=== PATIENT | female | born 1970 | race Caucasian/White ===

== ENCOUNTER 2018-07-18 09:19 | Emergency (ER) | payer MEDICAID ==
[2018-07-18] MEDS ORDERED: HYDROCODONE/ACETAMINOPHEN 5-325 MG TABLET PO ONE (09:43)
--- NOTE | 2018-07-18 09:44 | ER Document Report ---
ED Medical Screen (RME) - General Chief Complaint: Abscess Stated Complaint: VAGINAL DISCOMFORT Time Seen by Provider: 07/18/18 09:41 Mode of Arrival: Ambulatory Information source: Patient Notes: Patient presents complaining of swelling to the vaginal area that she noticed today. Patient states area is painful whenever she stands up and walks. Patient denies any vaginal discharge or fever. I have greeted and performed a rapid initial assessment of this patient. A comprehensive ED assessment and evaluation of the patient, analysis of test results and completion of the medical decision making process will be conducted by additional ED providers. TRAVEL OUTSIDE OF THE [place] IN LAST 30 DAYS: No - Related Data Allergies/Adverse Reactions: No Known Allergies Allergy (Verified 07/18/18 09:19) Physical Exam - Vital signs Vitals: Temp Pulse Resp BP Pulse Ox 98.2 F 109 H 18 147/78 H 98 07/18/18 09:33 07/18/18 09:33 07/18/18 09:33 07/18/18 09:33 07/18/18 09:33 - General General appearance: Appears well, Alert In distress: Mild Course - Vital Signs Vital signs: Temp Pulse Resp BP Pulse Ox 98.2 F 109 H 18 147/78 H 98 07/18/18 09:33 07/18/18 09:33 07/18/18 09:33 07/18/18 09:33 07/18/18 09:33
[2018-07-18] MEDS ORDERED: NORMAL SALINE 1000 ML 1,000 ML IV ONE (10:09)
[2018-07-18] MEDS ORDERED: MORPHINE SULFATE 10 MG/ML INJ IV ONE (10:09)
[2018-07-18] MEDS ORDERED: ONDANSETRON HCL INJ/PF 4 MG/2 ML SDV IV ONE (10:09)
[2018-07-18] MEDS ORDERED: DIPHENHYDRAMINE HCL 50 MG/ML VIAL IV ONE (10:09)
[2018-07-18] MEDS ORDERED: LIDOCAINE 1% INJ-PF (10 MG/ML) 30 ML SDV INJ ONE (10:10)
[2018-07-18] MEDS ORDERED: FLUCONAZOLE 100 MG TABLET PO ONE (12:11)
[2018-07-18] MEDS ORDERED: CEPHALEXIN 500 MG CAPSULE PO ONE (12:11)
[2018-07-18 12:48] VITALS: BP 113/69
--- NOTE | 2018-07-18 13:34 | ER Document Report ---
Entered by YASMIN SLATER SCRIBE 07/18/18 1006 Acting as scribe for:CHRIS CRUZ MD ED General - General Chief Complaint: Abscess Stated Complaint: VAGINAL DISCOMFORT Time Seen by Provider: 07/18/18 09:41 Primary Care Provider: [facility] [Provider Group] - 07/20/18 BLAKE NOWAK FNP [Primary Care Provider] - Follow up as needed Mode of Arrival: Ambulatory Information source: Patient Notes: Patient is a 47 year old female presenting to the emergency department complaining of vaginal pain and swelling onset this morning. Patient states she noticed a "bump" on her labia this morning. She states the pain is exacerbated with sitting up or walking. She denies vaginal discharge, fevers or a history of similar symptoms. TRAVEL OUTSIDE OF THE [place] IN LAST 30 DAYS: No - Related Data Allergies/Adverse Reactions: No Known Allergies Allergy (Verified 07/18/18 09:19) Past Medical History - General Information source: Patient - Social History Smoking Status: Never Smoker Frequency of alcohol use: None Family History: Reviewed & Not Pertinent Patient has suicidal ideation: No Patient has homicidal ideation: No Past Surgical History: Reports: Hx Section, Hx Tubal Ligation Review of Systems - Review of Systems Constitutional: No symptoms reported EENT: No symptoms reported Cardiovascular: No symptoms reported Respiratory: No symptoms reported Gastrointestinal: No symptoms reported Genitourinary: No symptoms reported Female Genitourinary: See HPI, Other Musculoskeletal: No symptoms reported Skin: See HPI Hematologic/Lymphatic: No symptoms reported Neurological/Psychological: No symptoms reported -: Yes All other systems reviewed and negative Physical Exam - Vital signs Vitals: Temp Pulse Resp BP Pulse Ox 98.2 F 109 H 18 147/78 H 98 07/18/18 09:33 07/18/18 09:33 07/18/18 09:33 07/18/18 09:33 07/18/18 09:33 - Notes Notes: GENERAL: Alert, interacts well. No acute distress. HEAD: Normocephalic, atraumatic. EYES: Pupils equal, round, and reactive to light. Extraocular movements intact. ENT: Oral mucosa moist, tongue midline. NECK: Full range of motion. Supple. Trachea midline. LUNGS: Clear to auscultation bilaterally, no wheezes, rales, or rhonchi. No respiratory distress. HEART: Regular rate and rhythm. No murmurs, gallops, or rubs. ABDOMEN: Soft, obese, non-tender. Non-distended. Bowel sounds present in all 4 q uadrants. No guarding, rigidity, or rebound. EXTREMITIES: Moves all 4 extremities spontaneously. No edema. No cyanosis. : Copious white adherent discharge consistent with yeast, small amount of eryt buddy. There is a cyst on the right labia consistent with a Bartholin cyst. NEUROLOGICAL: Alert and oriented x3. Normal speech. PSYCH: Appears anxious. SKIN: Warm, dry, normal turgor. Course - Vital Signs Vital signs: Temp Pulse Resp BP Pulse Ox 98.3 F 84 16 113/69 98 07/18/18 12:46 07/18/18 12:46 07/18/18 12:46 07/18/18 12:46 07/18/18 12:46 Discharge - Discharge Clinical Impression: Abscess of right genital labia, Yeast vaginitis Condition: Stable Disposition: HOME, SELF-CARE Additional Instructions: Bartholin Gland Cyst or Abcess The Bartholin glands are located on each side of the entrance to the vagina. These glands secrete lubricating fluid. If a gland becomes plugged, it can create a "Bartholin's cyst." This creates a large bulge on one side of the labia. A cyst is usually not very painful. If a Bartholin's cyst or gland becomes infected, it creates an abscess. This is a painful collection of pus. One side of the labia becomes swollen, red, and painful. It will be very painful to walk or sit. When a Bartholin's cyst causes mild symptoms, it can sometimes be treated with sitz baths and antibiotics. A painful abscess usually needs to be drained (lanced). If there are signs of infection in the tissues around the abscess, we prescribe antibiotics. Antibiotics are not always necessary for an abscess that's been drained. Return if you have increasing fever, body aches, lightheadedness, or if the swelling and pain is getting worse. You have decided against having the cyst drained today. Your exam suggest that you have a yeast infection in addition to the infected Bartholin's gland. Take medication as prescribed. Soak in warm water a few times a day. Use Monistat 7 vaginal yeast cream. Follow-up with [facility] in the next 2-3 days for recheck of your abscess. RETURN TO THE EMERGENCY ROOM IF ANY NEW OR WORSENING SYMPTOMS. Prescriptions: Cephalexin Monohydrate [Keflex 500 mg Capsule] 500 mg PO QID #28 capsule Hydrocodone/Acetaminophen [[place] 5-325 mg Tablet] 1 tab PO Q4 PRN #8 tablet PRN Reason: Referrals: ELIU,BLAKE, [employer] [Primary Care Provider] - Follow up as needed [facility] [Provider Group] - 07/20/18 Scribe Attestation: 07/18/18 10:13 I personally performed the services described in the documentation, reviewed and edited the documentation which was dictated to the scribe in my presence, and it accurately records my words and actions. I personally performed the services described in the documentation, reviewed and edited the documentation which was dictated to the scribe in my presence, and it accurately records my words and actions.
== END 2018-07-18 12:59 | disposition home or self-care (01) ==
LOC: ER 09:19
DX: N76.4 Abscess of vulva (principal); B37.3 Candidiasis of vulva and vagina
CPT/HCPCS: 99282; 96361; 96374; J3490 ×2; J2405; J7030

== ENCOUNTER 2018-09-16 08:30 | Inpatient (IN) | payer MEDICAID ==
--- NOTE | 2018-09-16 09:59 | ER Document Report ---
ED Medical Screen (RME) - General Chief Complaint: Hand Pain Stated Complaint: HAND PAIN Time Seen by Provider: 09/16/18 09:53 Primary Care Provider: BLAKE NOWAK FNP [Primary Care Provider] - Follow up as needed Mode of Arrival: Ambulatory Information source: Patient Notes: Patient presents to the emergency department with left index finger infection. Patient reports she had a hangnail about a week ago pulled it and since that time her finger has been swelling. She removed the Band-Aid yesterday and part of the fingertip skin peeled off. Tip of finger is dark. Entire finger is swollen with erythema radiating down into her hand. Patient denies pain. Denies past medical history of MRSA. Is right-hand dominant I have greeted and performed a rapid initial assessment of this patient. A comprehensive ED assessment and evaluation of the patient, analysis of test results and completion of the medical decision making process will be conducted by additional ED providers. Dictation of this chart was performed using voice recognition software; therefore, there may be some unintended grammatical errors. TRAVEL OUTSIDE OF THE [place] IN LAST 30 DAYS: No - Related Data Allergies/Adverse Reactions: No Known Allergies Allergy (Verified 09/16/18 08:38) Past Medical History - Social History Chew tobacco use (# tins/day): No Frequency of alcohol use: None Drug Abuse: None Renal/ Medical History: Denies: Hx Peritoneal Dialysis Past Surgical History: Reports: Hx Section, Hx Tubal Ligation Physical Exam - Vital signs Vitals: Temp Pulse Resp BP Pulse Ox 98.0 F 125 H 18 136/79 H 96 09/16/18 08:40 09/16/18 08:40 09/16/18 08:40 09/16/18 08:40 09/16/18 08:40 Course - Vital Signs Vital signs: Temp Pulse Resp BP Pulse Ox 98.0 F 125 H 18 136/79 H 96 09/16/18 08:40 09/16/18 08:40 09/16/18 08:40 09/16/18 08:40 09/16/18 08:40 Doctor's Discharge - Discharge Referrals: BLAKE NOWAK FNP [Primary Care Provider] - Follow up as needed
[2018-09-16] MEDS ORDERED: VANCOMYCIN HCL INJ 1000 MG VIAL IV ONE (10:33)
[2018-09-16] MEDS ORDERED: CEFTRIAXONE 1 GM/D5W RTU 1 GM/50 ML RTUPB IV ONE (10:33)
[2018-09-16] MEDS ORDERED: HYDROMORPHONE HCL INJ/PF 2 MG/ML AMPULE IV ONE (10:34)
[2018-09-16] MEDS ORDERED: METRONIDAZOLE 500 MG TABLET PO ONE (10:34)
--- NOTE | 2018-09-16 10:36 | ER Document Report ---
ED General - General Chief Complaint: Hand Pain Stated Complaint: HAND PAIN Time Seen by Provider: 09/16/18 09:53 Primary Care Provider: BLAKE NOWAK FNP [NO LOCAL MD] - Follow up as needed Mode of Arrival: Ambulatory Notes: Patient presents with left index finger pain and discoloration. Started as a hangnail a week ago then became discolored more painful red and then black at the tip. Having severe pain. Denies fever chills but is tachycardic. Every day smoker. TRAVEL OUTSIDE OF THE [place] IN LAST 30 DAYS: No - Related Data Allergies/Adverse Reactions: No Known Allergies Allergy (Verified 09/16/18 08:38) Past Medical History - General Information source: Patient - Social History Smoking Status: Current Every Day Smoker Chew tobacco use (# tins/day): No Smoking Education Provided: Yes - The patient ED visit today was directly related to their abuse of tobacco. Frequency of alcohol use: None Drug Abuse: None Family History: Reviewed & Not Pertinent Patient has suicidal ideation: No Patient has homicidal ideation: No Renal/ Medical History: Denies: Hx Peritoneal Dialysis Past Surgical History: Reports: Hx Section, Hx Tubal Ligation Review of Systems - Review of Systems Notes: REVIEW OF SYSTEMS GEN: Denies fever, chills, weight loss ENT: Denies sore throat, nasal discharge, ear pain EYES: Denies blurry vision, eye pain, discharge CV: Denies chest pain, palpitations, edema RESP: Denies cough, shortness of breath, wheezing GI: Denies abdominal pain, nausea, vomiting, diarrhea MSK: Finger pain SKIN: Denies rash, skin lesions LYMPH: Denies swollen glands/lymph nodes NEURO: Denies headache, focal weakness or numbness, dizziness PSYCH: Denies depression, suicidal or homicidal ideation PHYSICAL EXAMINATION General: No acute distress, well-nourished Head: Atraumatic, normocephalic ENT: Mouth normal, oropharynx moist, no exudates or tonsillar enlargement Eyes: Conjunctiva normal, pupils equal, lids normal Neck: No JVD, supple, no guarding CVS: Cardiac no murmurs Resp: No resp distress, equal and normal breath sounds bilaterally GI: Nondistended, soft, no tenderness to palpation, no rebound or guarding Ext: Laceration with black discoloration and anesthesia of the distal phalangeal segment of the left index finger, swelling/sausageswelling including redness and tenderness along the flexor sheath of the proximal left finger. Cannot bend. Pain on passive extension, held in slight flexion. No signs of tenderness or erythema over the hand itself Back: No CVA or midline TTP Skin: No rash, warm Lymphatic: No lymphadeopathy noted Neuro: Awake, alert. Face symmetric. GCS 15. Physical Exam - Vital signs Vitals: Temp Pulse Resp BP Pulse Ox 98.0 F 125 H 18 136/79 H 96 09/16/18 08:40 09/16/18 08:40 09/16/18 08:40 09/16/18 08:40 09/16/18 08:40 Course - Re-evaluation Re-evalutation: 09/16/18 10:36 Necrotic left finger infection concerning for ischemia and gangrene. Tachycardic concerning for sepsis. Consulted Ortho 1036sepsis protocol initiated with broad-spectrum metabolic coverage. Microvascular ischemia likely computing factor although grossly the lesion is intact. 09/16/18 11:43 ESR elevated. New onset diabetes without gap. 2 L of lactated Ringer's ordered. Not hypotensive. X-ray does not show osteo-. ESR is elevated. Discussed with orthopedics Dr. Cool's who says that he will amputate tomorrow morning and to make the patient n.p.o. after midnight. Discussed with Dr. Baker for admission. - Vital Signs Vital signs: Temp Pulse Resp BP Pulse Ox 98.0 F 125 H 18 136/79 H 96 09/16/18 08:40 09/16/18 08:40 09/16/18 08:40 09/16/18 08:40 09/16/18 08:40 - Laboratory Result Diagrams: 09/16/18 10:30 09/16/18 10:30 Laboratory results interpreted by me: 09/16/18 09/16/18 09/16/18 10:30 10:30 10:30 WBC 11.3 H RBC 5.78 H Hgb 16.1 H Hct 47.7 H ESR 85 H Sodium 130.8 L Chloride 87 L BUN 6 L Glucose 613 H* Lactic Acid 2.2 H AST 12 L ALT < 6 L Alkaline Phosphatase 238 H C-Reactive Protein 56.3 H Total Protein 9.6 H - Diagnostic Test Radiology reviewed: Image reviewed, Reports reviewed Critical Care Note - Critical Care Note Total time excluding time spent on procedures (mins): 34 Comments: The above patient is critically ill. Not including procedures, but including direct re-evaluations, speaking with patient and/or consultants, interpreting results, and documenting, I spent the total amount of minute listed listed above on critical care time Discharge - Discharge Clinical Impression: Necrosis of finger Diabetes mellitus with hyperglycemia Qualifiers: Diabetes mellitus type: type 2 Diabetes mellitus fci insulin use: without fci use Qualified Code(s): E11.65 - Type 2 diabetes mellitus with hyperglycemia Condition: Fair Disposition: ADMITTED INPATIENT Admitting Provider: Marry (Hospitalist) Unit Admitted: Medical Floor Referrals: ELIU,BLAKE, FERNY [NO LOCAL MD] - Follow up as needed
[2018-09-16 10:45] LABS: ABSOLUTE EOSINOPHILS # (AUTO) 0.3 10^3/uL (0.0-0.6); ABSOLUTE LYMPHOCYTES (AUTO) 2.6 10^3/uL (0.5-4.7); ABSOLUTE MONOCYTES (AUTO) 0.7 10^3/uL (0.1-1.4); ABSOLUTE NEUT (AUTO) 7.6 10^3/uL (1.7-8.2); BASOPHILS % (AUTO) 0.4 % (0-2); EOSINOPHILS % (AUTO) 2.3 % (0-6); HEMATOCRIT 47.7 % (36.0-47.0); HEMOGLOBIN 16.1 g/dL (12.0-15.5); LYMPHOCYTES % (AUTO) 23.4 % (13-45); MEAN CORPUSCULAR HGB CONC 33.9 g/dL (32.0-36.0); MEAN CORPUSCULAR VOLUME 83 fl (80-97); MONOCYTES % (AUTO) 6.4 % (3-13); PLATELET COUNT 355 10^3/uL (150-450); RED BLOOD COUNT 5.78 10^6/uL (3.72-5.28); RED CELL DISTRIBUTION WIDTH 13.7 % (11.5-14.0); SEGMENTED NEUTROPHILS % (AUTO) 67.5 % (42-78); TOTAL CELLS COUNTED % (AUTO) 100 %; WHITE BLOOD COUNT 11.3 10^3/uL (4.0-10.5)
--- NOTE | 2018-09-16 10:49 | RADIOLOGY REPORT (SQ) ---
EXAM DESCRIPTION: HAND LEFT 3 VIEWS COMPLETED DATE/TIME: 09/16/2018 10:23 am REASON FOR STUDY: index finger infection, cellulitis, necrotic COMPARISON: None. EXAM PARAMETERS: NUMBER OF VIEWS: Four views. TECHNIQUE: AP, lateral and oblique radiographic images acquired of the left hand, an additional late ral view of the 2nd digit was obtained. . LIMITATIONS: None. FINDINGS: MINERALIZATION: Normal. BONES: No acute fracture or dislocation. No worrisome bone lesions. JOINTS: No effusions. SOFT TISSUES: Soft tissue swelling the index finger. Some faint calcifications are seen. OTHER: No other significant finding. IMPRESSION: Soft tissue swelling the index finger. No acute osseous finding. TECHNICAL DOCUMENTATION: JOB ID: [id number] [employer]- All Rights Reserved Reading location - IP/workstation name: [email or web address]
[2018-09-16 11:11] LABS: ALANINE AMINOTRANSFERASE < 6 U/L (9-52); ALBUMIN 4.3 g/dL (3.5-5.0); ALKALINE PHOSPHATASE 238 U/L (38-126); ANION GAP 14 (5-19); ASPARTATE AMINO TRANSFERASE 12 U/L (14-36); BILIRUBIN,DIRECT 0.4 mg/dL (0.0-0.4); BLOOD UREA NITROGEN 6 mg/dL (7-20); C-REACTIVE PROTEIN 56.3 mg/L (<10.0); CALCIUM 9.8 mg/dL (8.4-10.2); CARBON DIOXIDE 30 mmol/L (22-30); CHLORIDE 87 mmol/L (98-107); POTASSIUM 3.8 mmol/L (3.6-5.0); SODIUM 130.8 mmol/L (137-145); TOTAL PROTEIN 9.6 g/dL (6.3-8.2)
[2018-09-16 11:20] LABS: GLUCOSE 613 mg/dL (75-110)
[2018-09-16 11:30] LABS: ERYTHROCYTE SEDIMENTATION RATE 85 mm/hr (0-20)
[2018-09-16] MEDS: RINGERS SOLUTION,LACTATED 1,000 ML IV PRN ×2 (11:51→15:44)
[2018-09-16] MEDS ORDERED: DEXTROSE 40% GEL 15 GM TUBE PO PRN ×2 (12:20)
[2018-09-16] MEDS ORDERED: GLUCAGON,HUMAN RECOMB 1 MG INJ IM PRN (12:20)
[2018-09-16] MEDS ORDERED: DEXTROSE 50%-WATER 25 GM/50 ML DISP.SYRIN IV PRN ×2 (12:20)
[2018-09-16] MEDS ORDERED: VANCOMYCIN HCL 0 MG in DEXTROSE 5%-WATER 250 ML IV NR (12:30)
[2018-09-16] MEDS: INSULIN LISPRO 100 UNIT/ML 3 ML VIAL SUBCUT SCH ×3 (13:08→21:09)
[2018-09-16] MEDS: FLUCONAZOLE 100 MG TABLET PO SCH (13:15)
--- NOTE | 2018-09-16 14:13 | PDOC H&P ---
History of Present Illness Admission Date/PCP: 09/16/18 12:03 Patient complains of: Left index finger swelling History of Present Illness: KRYSTYNA KING is a 47 year old female with no significant past medical history but does not see a regular PCP who presented with left index finger swelling and pain. Patient says that she had a hangnail a week ago and pulled out and after a few days started having tenderness and swelling in the area. She says that she also started having minimal drainage and over the past few days developed black discoloration of the distal part of the left index finger. Encounter, the distal part of the index finger looks necrotic and there is obvious pockets of abscess apparent on the ventral part of the index finger. ER provider has discussed case with orthopedics and Dr. Cool has recommended keeping her NPO postmidnight for digital amputation tomorrow. Her glucose was also noted to be elevated in the 600s. She says she does not have a previous diagnosis of diabetes but as mentioned does not have a PCP. She has noticeable multiple rashes on the legs most of which are healing. She says that she lives with friends and she has been exposed to fleas at a place where she lives and has gotten the rashes from fleas. On oral exam, she also has extensive white patches on the tongue and the palate consistent with extensive oral candidiasis. She denies promiscuous sexual activity. Did offer HIV testing and she said she does not want any HIV testing at this time. Past Surgical History Past Surgical History: Reports: Section, Tubal Ligation Social History Smoking Status: Current Every Day Smoker Family History Family History: Reviewed & Not Pertinent Parental Family History Reviewed: Yes - No premature CAD Children Family History Reviewed: No Sibling(s) Family History Reviewed.: No Medication/Allergy Home Medications: No Home Medications 09/16/18 Allergies/Adverse Reactions: No Known Allergies Allergy (Verified 09/16/18 08:38) Review of Systems All systems: reviewed and no additional remarkable complaints except as stated - As mentioned in HPI Physical Exam Vital Signs: Temp Pulse Resp BP Pulse Ox 98.0 F 125 H 18 136/79 H 96 09/16/18 08:40 09/16/18 08:40 09/16/18 08:40 09/16/18 08:40 09/16/18 08:40 Intake & Output 09/15/18 09/16/18 09/17/18 06:59 06:59 06:59 Weight 195 lb 8.8 oz General appearance: PRESENT: no acute distress, well-developed, well-nourished Head exam: PRESENT: atraumatic, normocephalic Eye exam: PRESENT: conjunctiva pink, EOMI, PERRLA. ABSENT: scleral icterus Ear exam: PRESENT: normal external ear exam Mouth exam: PRESENT: moist, tongue midline Neck exam: ABSENT: carotid bruit, JVD, lymphadenopathy, thyromegaly Respiratory exam: PRESENT: clear to auscultation eleazar. ABSENT: rales, rhonchi, wheezes Cardiovascular exam: PRESENT: RRR. ABSENT: diastolic murmur, rubs, systolic murmur Pulses: PRESENT: normal dorsalis pedis pul GI/Abdominal exam: PRESENT: normal bowel sounds, soft. ABSENT: distended, guarding, mass, organolmegaly, rebound, tenderness Rectal exam: PRESENT: deferred Extremities exam: PRESENT: full ROM, other - Distal part of the left index finger does appear necrotic with pockets of abscess on the same digit. ABSENT: calf tenderness, clubbing, pedal edema Neurological exam: PRESENT: alert, awake, oriented to person, oriented to place, oriented to time, oriented to situation, CN II-XII grossly intact. ABSENT: motor sensory deficit Results Laboratory Results: 09/16/18 10:30 09/16/18 10:30 09/16/18 09/16/18 09/16/18 10:30 10:30 10:30 WBC 11.3 H RBC 5.78 H Hgb 16.1 H Hct 47.7 H MCV 83 MCH 28.0 MCHC 33.9 RDW 13.7 Plt Count 355 Seg Neutrophils % 67.5 Lymphocytes % 23.4 Monocytes % 6.4 Eosinophils % 2.3 Basophils % 0.4 Absolute Neutrophils 7.6 Absolute Lymphocytes 2.6 Absolute Monocytes 0.7 Absolute Eosinophils 0.3 Absolute Basophils 0.0 Sodium 130.8 L Potassium 3.8 Chloride 87 L Carbon Dioxide 30 Anion Gap 14 BUN 6 L Creatinine 0.64 Est GFR ( Amer) > 60 Est GFR (Non-Af Amer) > 60 Glucose 613 H* Lactic Acid 2.2 H Calcium 9.8 Total Bilirubin 1.0 AST 12 L ALT < 6 L Alkaline Phosphatase 238 H C-Reactive Protein 56.3 H Total Protein 9.6 H Albumin 4.3 Serum HCG, Qual 09/16/18 10:30 WBC RBC Hgb Hct MCV MCH MCHC RDW Plt Count Seg Neutrophils % Lymphocytes % Monocytes % Eosinophils % Basophils % Absolute Neutrophils Absolute Lymphocytes Absolute Monocytes Absolute Eosinophils Absolute Basophils Sodium Potassium Chloride Carbon Dioxide Anion Gap BUN Creatinine Est GFR ( Amer) Est GFR (Non-Af Amer) Glucose Lactic Acid Calcium Total Bilirubin AST ALT Alkaline Phosphatase C-Reactive Protein Total Protein Albumin Serum HCG, Qual NEGATIVE Impressions: Hand X-Ray 09/16/18 09:56 IMPRESSION: Soft tissue swelling the index finger. No acute osseous finding. Assessment and Plan - Diagnosis (1) Cellulitis and abscess of unspecified digit Is this a current diagnosis for this admission?: Yes Plan: Start patient on of IV vancomycin. Orthopedics consulted in the ER and has recommended likely digital amputation tomorrow morning. (2) Necrosis of finger Is this a current diagnosis for this admission?: Yes Plan: As per #1. (3) Diabetes mellitus with hyperglycemia Qualifiers: Diabetes mellitus type: type 2 Diabetes mellitus snf insulin use: without petroleum terminal plant operator use Qualified Code(s): E11.65 - Type 2 diabetes mellitus with hyperglycemia Is this a current diagnosis for this admission?: Yes Plan: Sliding scale for now. Will check A1c and reassess need to initiate long- acting, long-term insulin therapy. (4) Lactic acidosis Is this a current diagnosis for this admission?: Yes Plan: 2 L of fluid bolus has been ordered in the ER. We will continue with normal saline after that. Will repeat lactic acid. (5) Oral candidiasis Is this a current diagnosis for this admission?: Yes Plan: Patient has extensive thrush on the tongue and the palate. We will start her on Diflucan. - Time Time Spent with patient: 25-34 minutes
--- NOTE | 2018-09-16 14:14 | ADVANCED CARE ---
- Diagnosis (1) Cellulitis and abscess of unspecified digit Diagnosis Current: Yes (2) Diabetes mellitus with hyperglycemia Diagnosis Current: Yes (3) Lactic acidosis Diagnosis Current: Yes (4) Necrosis of finger Diagnosis Current: Yes Attendance: Discussed with patient. She says she is a full code and prefers chest compressions, defibrillation and mechanical ventilation if the need arises. She says that her ex and her son are in [place] and she would like her mother, Simi in [place] to be her surrogate medical decision maker. Resuscitation Status: Full Code
[2018-09-16] MEDS: HUM INSULIN NPH/REG INSULIN HM 100 UNIT/1 ML 3 ML SUBCUT SCH (16:51)
[2018-09-16] MEDS: ACETAMINOPHEN 325 MG TABLET PO PRN (16:53)
[2018-09-16] MEDS: NORMAL SALINE 1000 ML 1,000 ML IV PRN (19:30)
[2018-09-16] MEDS: HEPARIN SOD (PORCINE) 5,000 UNIT/ML 1 ML SYRINGE SUBCUT SCH (21:06)
[2018-09-16] MEDS: VANCOMYCIN HCL 1,500 MG in DEXTROSE 5%-WATER 250 ML IV SCH (21:11)
[2018-09-17] MEDS ORDERED: ONDANSETRON HCL INJ/PF 4 MG/2 ML SDV ONE (06:23)
[2018-09-17] MEDS ORDERED: FENTANYL CITRATE INJ/PF 100 MCG/2 ML AMPUL ONE ×2 (06:23→11:58)
[2018-09-17] MEDS ORDERED: MIDAZOLAM 2 MG/2 ML INJ ONE (06:23)
[2018-09-17] MEDS ORDERED: DEXAMETHASONE SOD PHOSPHATE INJ 4 MG/1 ML VIAL ONE (06:23)
[2018-09-17] MEDS ORDERED: PROPOFOL INJ 200 MG/20 ML VIAL IV ONE (06:23)
[2018-09-17] MEDS ORDERED: LIDOCAINE 1% INJ-PF (10 MG/ML) 30 ML SDV ONE (07:48)
[2018-09-17] MEDS: ACETAMINOPHEN 325 MG TABLET PO PRN ×3 (08:17→19:40)
[2018-09-17] MEDS: INSULIN LISPRO 100 UNIT/ML 3 ML VIAL SUBCUT SCH ×4 (08:18→22:12)
[2018-09-17] MEDS: NORMAL SALINE 1000 ML 1,000 ML IV PRN ×2 (08:18→19:40)
[2018-09-17] MEDS: HUM INSULIN NPH/REG INSULIN HM 100 UNIT/1 ML 3 ML SUBCUT SCH ×2 (08:18→16:06)
[2018-09-17] MEDS: VANCOMYCIN HCL 1,500 MG in DEXTROSE 5%-WATER 250 ML IV SCH ×2 (10:18→22:12)
[2018-09-17] MEDS: HEPARIN SOD (PORCINE) 5,000 UNIT/ML 1 ML SYRINGE SUBCUT SCH ×2 (10:18→22:13)
[2018-09-17] MEDS: FLUCONAZOLE 100 MG TABLET PO SCH (10:18)
[2018-09-17] MEDS ORDERED: ALBUTEROL SULFATE 0.083% NEB 2.5 MG/3 ML AMPUL NEB ONE (10:30)
[2018-09-17] MEDS ORDERED: SUCCINYLCHOLINE CHLORIDE INJ 200 MG/10 ML VIAL ONE (10:37)
[2018-09-17] MEDS ORDERED: PROMETHAZINE HCL INJ 25 MG/1 ML VIAL IV PRN ×2 (11:08)
[2018-09-17] MEDS ORDERED: DIPHENHYDRAMINE HCL 50 MG/ML VIAL IV PRN (11:08)
[2018-09-17] MEDS ORDERED: FENTANYL CITRATE INJ/PF 100 MCG/2 ML AMPUL IV PRN ×3 (11:08)
[2018-09-17] MEDS ORDERED: MEPERIDINE HCL/PF INJ 25 MG/1 ML DISP.SYRIN IV PRN (11:08)
[2018-09-17] MEDS ORDERED: MORPHINE SULFATE 10 MG/ML INJ IV PRN (11:08)
[2018-09-17] MEDS ORDERED: INSULIN LISPRO 100 UNIT/ML 3 ML VIAL ONE (12:18)
--- NOTE | 2018-09-17 12:39 | CONSULTATION REPORT E ---
Consultation Report NAME: KRYSTYNA KING : 1970 AGE: 47Y DATE: 09/17/2018 401 A CONSULTATION REPORT RENDERING PHYSICIAN: BETO KOROMA M.D. CONSULTING PHYSICIAN: CHRISTINE LOZADA M.D. Requesting Physician REASON FOR CONSULTATION: Left index finger deep infection with digital necrosis. HISTORY OF PRESENT ILLNESS: The patient is a 47-year-old woman with insulin-requiring diabetes who had presented to the emergency room yesterday with digital necrosis of the left index finger. The patient states that she had a hangnail approximately 1 week ago, which she just pulled, did not use any type of nail clipper. She states that over the past week the digit began having drainage followed by digital necrosis. When she presented to the emergency department she was found to be tachycardic with hyperglycemia into the 600s. PAST MEDICAL HISTORY: Diabetes. PAST SURGICAL HISTORY: 1. section. 2. Tubal ligation. CURRENT MEDICATIONS WHILE HOSPITALIZED: 1. Rocephin. 2. Vancomycin. 3. Insulin. ALLERGIES: None. FAMILY HISTORY: Noncontributory. SOCIAL HISTORY: She is a 1 pack per day every day smoker. PHYSICAL EXAMINATION: GENERAL: She is a pleasant well-appearing woman in no acute distress. She is alert and appropriate. VITAL SIGNS: This morning temperature 98.6, blood pressure 113/63, pulse 89, respirations 18, 95% on room air. HEENT: Normocephalic, atraumatic. Extraocular movements intact. NECK: Supple. PULMONARY: Clear with some end expiratory wheezes. CARDIAC: Regular rate and rhythm. ABDOMEN: Soft. EXTREMITIES: On examination of the left index finger there is digital necrosis on the volar aspect of the left index finger middle phalanx and distal phalanx. There is erythema both volarly and dorsally to the level of the proximal phalanx. LABORATORY FINDINGS: From 09/16/2018 demonstrates white count of 11.3, hemoglobin of 16.1, platelets of 355. C-reactive protein from 09/16/2018 is 56.3. ESR from 09/16/2018 is 85. Radiograph reviews of the left hand dated 09/16/2018 independently reviewed. There is absorption of the distal phalangeal tuft of the left index finger consistent with osteomyelitis of bone of the distal phalanx. IMPRESSION: Left index finger deep infection with digital necrosis and osteomyelitis of the distal phalanx. PLAN: I have discussed risks, benefits, and alternatives with the patient including partial amputation of the digit. Risks include the risk of with anesthesia, the risk of persistent infection, the risk of pain following the procedure, which may be prolonged. The patient understands these risks and wishes to proceed with a partial digital amputation and incision and debridement. DICTATING PHYSICIAN: BETO KOORMA M.D. [id number] PHY#: [id number] ID: [id number] JOB#: [id number] ACCT: [id number] cc:BETO KOROAM M.D. > MTDD
--- NOTE | 2018-09-17 14:14 | OPERATIVE REPORT E ---
Operative Report NAME: KRYSTYNA KING : 1970 AGE: 47Y DATE OF SURGERY: 09/17/2018 ROOM: 401 PREOPERATIVE DIAGNOSIS: 1. LEFT INDEX FINGER DEEP INFECTION WITH NECROSIS. 2. LEFT INDEX FINGER OSTEOMYELITIS, DISTAL PHALANX. POSTOPERATIVE DIAGNOSIS: 1. LEFT INDEX FINGER DEEP INFECTION WITH NECROSIS. 2. LEFT INDEX FINGER OSTEOMYELITIS, DISTAL PHALANX. PROCEDURE: Left index finger amputation. SURGEON: BETO KOROMA M.D. ANESTHESIA: General. BLOOD LOSS: Minimal. COMPLICATIONS: None. INDICATIONS: The patient is a 47-year-old woman who presented with a deep infection of the left index finger with necrosis of skin overlying the distal phalanx, middle phalanx, as well as the mid portion of the proximal phalanx. She presented to the emergency room last evening and was admitted. DESCRIPTION OF PROCEDURE: Following induction of general anesthetic the patient was already on antibiotics. The patient was positioned supine on the operating room table. All bony prominences were padded. A tourniquet was placed proximally on the left arm, but not inflated. The left upper extremity was sterilely prepped with Hibiclens and alcohol and draped in a standard fashion. The arm was exsanguinated, tourniquet inflated to 250 mmHg. Once the case was started and necrotic tissue was debrided the epidermis had sloughed off all the way to the base of the proximal phalanx. This was removed with tenotomy scissors leaving the underlying dermis. The underlying dermis was fully necrotic and from the level of the mid proximal phalanx distally. The tissue had started to blacken and there was paloma pus involving the flexor and extensor compartments. Due to the extensive contamination of tissue as well as necrosis deep to the dermis it was decided to do an amputation at the level of the proximal phalanx. Incisions were inset bringing the amputation proximal to the level of significant contamination. The skin was incised. The bone was cut and then the bone was removed using a 15 blade to the level of the MP joint. The digital nerves and arteries were pulled distally and cut proximally to prevent neuroma formation. Copious irrigation was then performed of the flaps using 1 L of sterile saline. Cultures were taken and sent. The digit was sent to pathology as well. The wound was closed with 3-0 nylon suture. Lidocaine 1% was injected into the wound for postoperative analgesia and a sterile dressing was applied. The patient tolerated the procedure well without complication, was brought to recovery room in stable condition. DICTATING PHYSICIAN: BETO KOROMA M.D. [id number] PHY#: [id number] ID: [id number] JOB#: [id number] ACCT: [id number] cc:BETO KOROMA M.D. >
--- NOTE | 2018-09-17 14:31 | PDOC PROGRESS REPORT ---
Subjective Progress Note for:: 09/17/18 Subjective:: This is 47 years old female patient who moved from [place] to [facility] a year ago, with no significant medical history except tobacco dependence resented with chief complaint of swollen infected left index finger. Also examination of the index finger shows necrosis of the distal end middle phalanx of the left index finger. X-ray of the involved finger is compatible with osteomyelitis of the distal phalanx. Her blood work shows hyper glycemia with blood glucose level of 613 and lactic acidosis with lactic acid level of 2.3. Her wound culture grew group B streptococcus and her blood culture is positive for gram-positive cocci in cluster. This morning patient taken to the OR and she undergone amputation of the left index finger. I have a long discussion with the patient regarding the complications risks and principles of management of diabetes mellitus. Patient advised to do lifestyle modifications a form of healthy diet regular exercise and weight loss. peer educator consulted to further reinforce education of diabetes. Patient has been on vancomycin. Reason For Visit: SEPSIS,NECROTIC FINGER Physical Exam Vital Signs: Temp Pulse Resp BP Pulse Ox 98.3 F 86 20 143/75 H 95 09/17/18 13:25 09/17/18 13:25 09/17/18 13:25 09/17/18 13:25 09/17/18 13:25 Intake & Output 09/16/18 09/17/18 09/18/18 06:59 06:59 06:59 Intake Total 3778 800 Output Total 2 Balance 3778 798 Weight 88.9 kg General appearance: PRESENT: no acute distress Head exam: PRESENT: atraumatic Eye exam: PRESENT: conjunctiva pink Teeth exam: PRESENT: poor dentation Neck exam: ABSENT: carotid bruit, JVD, lymphadenopathy, thyromegaly Respiratory exam: PRESENT: clear to auscultation eleazar. ABSENT: rales, rhonchi, wheezes Cardiovascular exam: PRESENT: RRR. ABSENT: diastolic murmur, rubs, systolic murmur Vascular exam: PRESENT: normal capillary refill GI/Abdominal exam: PRESENT: normal bowel sounds, soft. ABSENT: distended, guarding, mass, organolmegaly, rebound, tenderness Extremities exam: PRESENT: other - The left index finger stump dressed. Neurological exam: PRESENT: alert, awake, oriented to person, oriented to place, oriented to time, oriented to situation, reflexes normal Results Laboratory Results: 09/16/18 10:30 09/16/18 10:30 09/16/18 09/16/18 15:52 22:02 Lactic Acid 2.3 H 1.0 Impressions: Hand X-Ray 09/16/18 09:56 IMPRESSION: Soft tissue swelling the index finger. No acute osseous finding. Assessment and Plan - Diagnosis (1) Cellulitis osteomyelitis L index finger Is this a current diagnosis for this admission?: Yes Plan: Her wound culture is positive for group B streptococci. Patient has been on vancomycin and will add cefazolin for her. (2) Gram-positive bacteremia Is this a current diagnosis for this admission?: Yes Plan: Her blood culture is positive for gram-positive cocci in cluster. Final reports pending. I will repeat the blood culture and is a meantime I will continue with vancomycin. (3) Newly diagnosed diabetes mellitus Is this a current diagnosis for this admission?: Yes Plan: Patient presented with hyperglycemia with blood sugar level of 613 and hemoglobin A1c of 12.3. Patient has been started on insulin and she will be educated about the signs and symptoms of hypoglycemia hyperglycemia and how to inject herself. (4) Tobacco dependence Is this a current diagnosis for this admission?: Yes Plan: Patient encouraged and counseled to quit smoking. (5) Obesity (BMI 30-39.9) Is this a current diagnosis for this admission?: Yes Plan: Patient advised to do lifestyle modification.
[2018-09-17] MEDS ORDERED: NICOTINE 14 MG/24 HR PATCH.TD24 TD PRN (14:32)
[2018-09-17] MEDS ORDERED: NICOTINE 14 MG/24 HR PATCH.TD24 TD ONE (15:30)
[2018-09-17] MEDS ORDERED: INSULIN LISPRO 100 UNIT/ML 3 ML VIAL SUBCUT ONE (18:15)
--- NOTE | 2018-09-17 19:14 | EKG REPORT ---
SEVERITY:- NORMAL ECG - SINUS RHYTHM : Confirmed by: Sun Hernandez MD 17-Sep-2018 19:13:22
[2018-09-17] MEDS: HYDROCODONE/ACETAMINOPHEN 5-325 MG TABLET PO PRN (22:42)
[2018-09-18] MEDS: ACETAMINOPHEN 325 MG TABLET PO PRN ×2 (07:29→14:02)
[2018-09-18] MEDS: FLUCONAZOLE 100 MG TABLET PO SCH (09:19)
[2018-09-18] MEDS: HEPARIN SOD (PORCINE) 5,000 UNIT/ML 1 ML SYRINGE SUBCUT SCH ×2 (09:21→22:02)
[2018-09-18] MEDS: VANCOMYCIN HCL 1,500 MG in DEXTROSE 5%-WATER 250 ML IV SCH ×2 (09:24→22:03)
[2018-09-18] MEDS: INSULIN LISPRO 100 UNIT/ML 3 ML VIAL SUBCUT SCH ×4 (09:26→22:02)
[2018-09-18] MEDS: HUM INSULIN NPH/REG INSULIN HM 100 UNIT/1 ML 3 ML SUBCUT SCH ×2 (09:28→16:29)
--- NOTE | 2018-09-18 10:45 | PDOC PROGRESS REPORT ---
Subjective Progress Note for:: 09/18/18 Subjective:: This is 47 years old female patient who moved from [place] to [facility] a year ago, with no significant medical history except tobacco dependence resented with chief complaint of swollen infected left index finger. Also examination of the index finger shows necrosis of the distal end middle phalanx of the left index finger. X-ray of the involved finger is compatible with osteomyelitis of the distal phalanx. Her blood work shows hyper glycemia with blood glucose level of 613 and lactic acidosis with lactic acid level of 2.3. Her wound culture grew group B streptococcus and her blood culture is positive for gram-positive cocci in cluster. This morning patient taken to the OR and she undergone amputation of the left index finger. I have a long discussion with the patient regarding the complications risks and principles of management of diabetes mellitus. Patient advised to do lifestyle modifications a form of healthy diet regular exercise and weight loss. production laborer consulted to further reinforce education of diabetes. Patient has been on vancomycin. 09/18/18: Patient seen and examined at bedside. She is awake alert oriented. She is not in pain or distress. Her blood culture is positive for gram-positive cocci in cluster and her wound culture is positive for group B streptococcus. Patient has been on vancomycin. Suspicious identification is pending. Yesterday her blood glucose was ranging between 400-505. She is given 2 doses of Humalog and started on Lantus 35 units nightly. This morning her blood sugar is 272. Patient does not have any nausea vomiting or fever. She is eating well. Reason For Visit: OSTEOMYELITIS Physical Exam Vital Signs: Temp Pulse Resp BP Pulse Ox 98.3 F 91 17 130/74 H 94 09/18/18 07:47 09/18/18 07:47 09/18/18 07:47 09/18/18 07:47 09/18/18 07:47 Intake & Output 09/17/18 09/18/18 09/19/18 06:59 06:59 06:59 Intake Total 3778 3130 Output Total 2 Balance 3778 3128 Weight 88.9 kg 108.1 kg General appearance: PRESENT: no acute distress Head exam: PRESENT: atraumatic Teeth exam: PRESENT: poor dentation Neck exam: ABSENT: carotid bruit, JVD, lymphadenopathy, thyromegaly Respiratory exam: PRESENT: clear to auscultation eleazar. ABSENT: rales, rhonchi, wheezes Cardiovascular exam: PRESENT: RRR. ABSENT: diastolic murmur, rubs, systolic murmur GI/Abdominal exam: PRESENT: normal bowel sounds, soft. ABSENT: distended, guarding, mass, organolmegaly, rebound, tenderness Neurological exam: PRESENT: alert, awake, oriented to person, oriented to place, oriented to time, oriented to situation Results Laboratory Results: 09/16/18 10:30 09/16/18 10:30 Impressions: Hand X-Ray 09/16/18 09:56 IMPRESSION: Soft tissue swelling the index finger. No acute osseous finding. Assessment and Plan - Diagnosis (1) Cellulitis osteomyelitis L index finger Is this a current diagnosis for this admission?: Yes Plan: Her wound culture is positive for group B streptococci. Patient has been on vancomycin and will add cefazolin for her. (2) Gram-positive bacteremia Is this a current diagnosis for this admission?: Yes Plan: Her blood culture is positive for gram-positive cocci in cluster. Final reports pending. I will repeat the blood culture and is a meantime I will continue with vancomycin. (3) Newly diagnosed diabetes mellitus Is this a current diagnosis for this admission?: Yes Plan: Patient presented with hyperglycemia with blood sugar level of 613 and hemoglobin A1c of 12.3. Patient has been started on insulin and she will be educated about the signs and symptoms of hypoglycemia hyperglycemia and how to inject herself. (4) Tobacco dependence Is this a current diagnosis for this admission?: Yes Plan: Patient encouraged and counseled to quit smoking. (5) Obesity (BMI 30-39.9) Is this a current diagnosis for this admission?: Yes Plan: Patient advised to do lifestyle modification.
[2018-09-18] MEDS: NORMAL SALINE 1000 ML 1,000 ML IV PRN (16:37)
[2018-09-18] MEDS: HYDROCODONE/ACETAMINOPHEN 5-325 MG TABLET PO PRN (21:59)
[2018-09-19] MEDS: ACETAMINOPHEN 325 MG TABLET PO PRN (02:43)
[2018-09-19] MEDS: INSULIN LISPRO 100 UNIT/ML 3 ML VIAL SUBCUT SCH ×2 (08:13→11:52)
[2018-09-19] MEDS: HUM INSULIN NPH/REG INSULIN HM 100 UNIT/1 ML 3 ML SUBCUT SCH (08:14)
[2018-09-19] MEDS: FLUCONAZOLE 100 MG TABLET PO SCH (09:16)
[2018-09-19] MEDS: HEPARIN SOD (PORCINE) 5,000 UNIT/ML 1 ML SYRINGE SUBCUT SCH ×2 (09:16→09:24)
[2018-09-19] MEDS: VANCOMYCIN HCL 1,500 MG in DEXTROSE 5%-WATER 250 ML IV SCH (09:17)
[2018-09-19 10:48] LABS: VANCOMYCIN,TROUGH 35.3 ug/mL (5.0-20.0)
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
[2018-09-19 13:07] VITALS: BP 138/72
== END 2018-09-19 13:25 | disposition home or self-care (01) | DRG 988 ==
LOC: ER 08:30 → EH 12:03 → INTOOBSV 12:03 → 4N 15:29 → OBSVTOIN 09-17 17:24
PROVIDERS: ADMIT Internal Medicine; ATTEND Internal Medicine
PROC: 0X6P0Z1 Detachment at Left Index Finger, High, Open Approach (ICD-10-PCS; principal; 2018-09-17 10:30)
DX: E11.69 Type 2 diabetes mellitus with other specified complication (principal); M86.9 Osteomyelitis, unspecified; B37.0 Candidal stomatitis; E66.9 Obesity, unspecified; B95.1 Streptococcus, group B, as the cause of diseases classified elsewhere; F17.210 Nicotine dependence, cigarettes, uncomplicated; E11.65 Type 2 diabetes mellitus with hyperglycemia; Z68.39 Body mass index [BMI] 39.0-39.9, adult
CPT/HCPCS: 01830; 36415; 80053; 80202; 82565; 82962; 83036; 83605; 84703; 85025; 85652; 86140; 87040; 87070; 87075; 87077; 87186; 87205; 88305; 88311; 93005; 93010; 94640; 96365; 96368; 99291; J0330; J0696; J1100; J1170; J1644; J1815; J2250; J2405; J2704; J3010; J3370; J3490; J7030; J7060; J7120